=== PATIENT | male | born 1955 | race Caucasian/White ===

== ENCOUNTER 2024-12-21 10:00 | Outpatient (RCR) | payer MEDICARE, BC, SELFPAY ==
--- NOTE | 2024-12-08 10:49 | PTNOTE_ITS ---
PT OP Initial Eval Patient Information Outpatient Physical Therapy Treatment Date: 12/08/24 Visit Reasons: gait and mobility abnormalities Medical Diagnosis: I66.9; Z91.81 Treatment Dx #1: Decrease Balance Treatment Dx #2: Abnormal Gait Start of Care: 12/08/24 Date of Onset: 6 months ago Smoking Status Smoking Status: Never smoker Initial Assessment Subjective: Pt is a 69 y/o male reports of imbalance and gait difficulty ~ 6 months ago. Pt mentioned now he is walking with a shuffling gait. 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 Pt has difficulty with prolonged standing, chores, balance, self care, uneven surfaces, walking, and performing recreational activities. Objective: BLE AROM: all motions are WFL BLE MMTs: grossly 4-/5 TU sec Sit-Stand Test: 7 reps Sharpen Romber sec Assessment: Pt demonstrate decrease LE weakness with balance deficits leading to difficulty with ADLs. Pt will benefit from physical therapy to increase strength, mobility, and work on balance. 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 1) Increase BLE MMTs grossly to 4/5 in 6 wks to be able to walk more than 30 mins 2) Increase sit-stand reps to 12 in 6 wks to improve BLE endurance to be able to stand more than 30 mins 3) Decrease TUG score to 13 sec in 6 wks to be able to decrease fall risk 4) Improve sharpen romberg to 20 sec in 6 wks to be able to improved static and dynamic balance with ADLs 5) Indep with HEP Treatment Plan 1) Manual Therapy 2) Therapeutic Activities 3) Therapeutic Exercises 4) Balance Training 5) Gait Training Frequency and Duration: 2 x wk for 6 wks Certification Dates: 12/08/24 to 03/10/25 Procedure Charges OP PT Eval Mod Complex 30 minutes: Yes
--- NOTE | 2024-12-13 11:43 | PT.ODAYNRPT ---
PT Outpatient Daily Note OP Daily Note Outpatient Physical Therapy Treatment Date: 12/13/24 Visit Reasons: gait and mobility abnormalities Subjective: Pt looks down due to imbalance and fear of falling. According to patient has a unknown foot condition where is toes curl causing imbalance. Pt has seen chief revenue officer but feels that consultation was useless where no outcome came out of the appt. Objective: Please see flow chart for list of ther ex performed Assessment: frequent cues to keep eye level with all exercises; patient has the tendency to look down due to habit and fear of falling. Difficulty with tandem stance balance more left foot over right foot stance. Pt was fatigue post PT session Plan: Continue with PT Length of Time (minutes) of Treatment: 30 Minutes Procedure Charges Therapeutic Exercise 30 minutes: Yes
--- NOTE | 2024-12-21 11:38 | PTNOTE_ITS ---
PT Outpatient Daily Note OP Daily Note Outpatient Physical Therapy Treatment Date: 12/21/24 Visit Reasons: gait and mobility abnormalities Subjective: No new complaints. Objective: Please see flow sheet for ther ex list. Assessment: Used hurdles to work on improving step height, SENIOR LOAN PROCESSOR on SBA and pt using single REAL ESTATE ASSET MANAGER for balance. Plan: Continue with pOC. Length of Time (minutes) of Treatment: 30 Minutes SENIOR LOAN PROCESSOR Service Modifier Method I: Divide the number of min of care provided by the SENIOR LOAN PROCESSOR/QUARRYING SPECIALIST by the total min of care provided then multiply by 100. If greater than 11 percent modifier is required. Method II: Divide the total time of care provided to patient by 10 (round to the nearest whole number) and add 1 min. to set the minimum time requirement. If treatment total was 60 min., then 10% of 6 min PT CQ modifier applied: CQ Modifier applied Procedure Charges Therapeutic Exercise 30 minutes: Yes
== END 2024-12-24 23:59 | disposition home or self-care (01) ==
LOC: CPTX 10:00
PROVIDERS: PCP Physician Assistant Medical; Referring Provider Physician Assistant Medical; Visit Provider Physician Assistant Medical
DX: I69.359 Hemiplegia and hemiparesis following cerebral infarction affecting unspecified side (principal); I69.398 Other sequelae of cerebral infarction; R26.89 Other abnormalities of gait and mobility; R26.2 Difficulty in walking, not elsewhere classified; R53.1 Weakness; Z91.81 History of falling
CPT/HCPCS: 97110; 97162

== ENCOUNTER 2025-01-18 09:00 | Outpatient (RCR) | payer MEDICARE, BC, SELFPAY ==
--- NOTE | 2024-12-27 11:33 | PT.ODAYNRPT ---
PT Outpatient Daily Note OP Daily Note Outpatient Physical Therapy Treatment Date: 12/27/24 Visit Reasons: GAIT AND MOBILITY Subjective: No new complaints. Objective: Please see flow sheet for ther ex list. Assessment: Pt unsteady and way present during tandem stance and SLB requiring FLEXIBLE MACHINING SYSTEM MACHINIST. Plan: Continue with pOC. Length of Time (minutes) of Treatment: 30 Minutes SAFEKEEPING CLERK Service Modifier Method I: Divide the number of min of care provided by the SAFEKEEPING CLERK/DYNAMIC BALANCER SET UP WORKER by the total min of care provided then multiply by 100. If greater than 11 percent modifier is required. Method II: Divide the total time of care provided to patient by 10 (round to the nearest whole number) and add 1 min. to set the minimum time requirement. If treatment total was 60 min., then 10% of 6 min PT CQ modifier applied: CQ Modifier applied Procedure Charges Therapeutic Exercise 30 minutes: Yes
--- NOTE | 2024-12-29 11:17 | PT.ODAYNRPT ---
PT Outpatient Daily Note OP Daily Note Outpatient Physical Therapy Treatment Date: 12/29/24 Visit Reasons: GAIT AND MOBILITY Subjective: Pt still afraid he may fall at work. Pt is up to do any balance exercises Objective: Please see flow chart for list of ther ex performed Assessment: frequent cues given to keep eyes upward with balance exercises. Notice increase post sway with eyes closed on the foam with narrow feet; require help from PT to maintain balance Plan: Continue with PT Length of Time (minutes) of Treatment: 30 Minutes Procedure Charges Therapeutic Exercise 30 minutes: Yes
--- NOTE | 2025-01-02 10:51 | PT.ODAYNRPT ---
PT Outpatient Daily Note OP Daily Note Outpatient Physical Therapy Treatment Date: 01/02/25 Visit Reasons: GAIT AND MOBILITY Subjective: No new complaints. Objective: Please see flow sheet for ther ex list. Assessment: Pt retro leans during step up exercise, PRESS TENDER INCENDIARY GRENADE on SBA. Pt is high fall risk demonstrates poor foot clearance and narrows based stride, verbal cues and reminders for correction during PT session. Plan: Continue with pOC. Length of Time (minutes) of Treatment: 30 Minutes PRESS TENDER INCENDIARY GRENADE Service Modifier Method I: Divide the number of min of care provided by the PRESS TENDER INCENDIARY GRENADE/KEY by the total min of care provided then multiply by 100. If greater than 11 percent modifier is required. Method II: Divide the total time of care provided to patient by 10 (round to the nearest whole number) and add 1 min. to set the minimum time requirement. If treatment total was 60 min., then 10% of 6 min PT CQ modifier applied: CQ Modifier applied Procedure Charges Therapeutic Exercise 30 minutes: Yes
--- NOTE | 2025-01-04 12:15 | PT.ODAYNRPT ---
PT Outpatient Daily Note OP Daily Note Outpatient Physical Therapy Treatment Date: 01/04/25 Visit Reasons: GAIT AND MOBILITY Subjective: Pt's balance is slowly improving. Pt still notice BLE weakness and ankle instability where it throws him off with walking on uneven surfaces Objective: Please see flow chart for list of ther ex performed Assessment: improvement noted with side step on airex with less use of hands for balance. Pt also able to maintain tandem stance on airex longer today with decrease sway Plan: Continue with PT Length of Time (minutes) of Treatment: 30 Minutes Procedure Charges Therapeutic Exercise 30 minutes: Yes
--- NOTE | 2025-01-10 11:58 | PTNOTE_ITS ---
PT Outpatient Daily Note OP Daily Note Outpatient Physical Therapy Treatment Date: 01/10/25 Visit Reasons: GAIT AND MOBILITY Subjective: No concerns. Objective: Please see flow sheet for ther ex list. Assessment: Pt instructed on hurdles exercise, performs with single CISCO UNIFIED COMMUNICATIONS ENGINEER minimal sway with step over. Plan: Continue with poC. Length of Time (minutes) of Treatment: 30 Minutes BUSINESS INTELLIGENCE MANAGER Service Modifier Method I: Divide the number of min of care provided by the BUSINESS INTELLIGENCE MANAGER/SANTA'S HELPER by the total min of care provided then multiply by 100. If greater than 11 percent modifier is required. Method II: Divide the total time of care provided to patient by 10 (round to the nearest whole number) and add 1 min. to set the minimum time requirement. If treatment total was 60 min., then 10% of 6 min PT CQ modifier applied: CQ Modifier applied Procedure Charges Therapeutic Exercise 30 minutes: Yes
--- NOTE | 2025-01-18 10:20 | PTNOTE_ITS ---
PT Outpatient Daily Note OP Daily Note Outpatient Physical Therapy Treatment Date: 01/18/25 Visit Reasons: GAIT AND MOBILITY Subjective: No new complaints. Objective: Please see flow sheet for ther ex list. Assessment: Pt demonstrates moderate sway today with lateral stepping and static stance on airex balance beam exercise requiring single UNDERWRITING SUPPORT SPECIALIST to maintain static balance. Plan: Continue with pOC. Length of Time (minutes) of Treatment: 30 Minutes MANUFACTURERS REPRESENTATIVE Service Modifier Method I: Divide the number of min of care provided by the MANUFACTURERS REPRESENTATIVE/LOG MANAGER by the total min of care provided then multiply by 100. If greater than 11 percent modifier is required. Method II: Divide the total time of care provided to patient by 10 (round to the nearest whole number) and add 1 min. to set the minimum time requirement. If treatment total was 60 min., then 10% of 6 min PT CQ modifier applied: CQ Modifier applied Procedure Charges Therapeutic Exercise 30 minutes: Yes
== END 2025-01-23 23:59 | disposition home or self-care (01) ==
LOC: CPTX 09:00
PROVIDERS: PCP Physician Assistant Medical; Referring Provider Physician Assistant Medical; Visit Provider Physician Assistant Medical
DX: R26.89 Other abnormalities of gait and mobility (principal); I66.9 Occlusion and stenosis of unspecified cerebral artery; R53.1 Weakness; Z91.81 History of falling
CPT/HCPCS: 97110

== ENCOUNTER 2025-01-30 11:00 | Outpatient (RCR) | payer MEDICARE, BC, SELFPAY ==
--- NOTE | 2025-01-25 15:21 | PT.ODAYNRPT ---
PT Outpatient Daily Note OP Daily Note Outpatient Physical Therapy Treatment Date: 01/25/25 Visit Reasons: Gait and mobility Subjective: Pt's balance is not the best but has fallen. Objective: Please see flow chart for list of ther ex performed Assessment: improved tandem balance with practice. Pt still has difficulty clearing feet with nilesh exercises intermittently. Plan: Continue with PT Length of Time (minutes) of Treatment: 30 Minutes Procedure Charges Therapeutic Exercise 30 minutes: Yes
--- NOTE | 2025-01-30 12:02 | PT.ODAYNRPT ---
PT Outpatient Daily Note OP Daily Note Outpatient Physical Therapy Treatment Date: 01/30/25 Visit Reasons: Gait and mobility Subjective: Pt reports progress with balance but not where he would like, still has difficulty walking on uneven surfaces. Objective: Please see flow sheet for ther ex list. Assessment: Pt continues to demonstrates mild moderate sway with tandem balance interventions requiring ENVIRONMENTAL SERVICES ASSISTANT to maintain trunk control and balance. Plan: Asses for DC note, pt has one visit left. Length of Time (minutes) of Treatment: 30 Minutes Procedure Charges Therapeutic Exercise 30 minutes: Yes
--- NOTE | 2025-03-14 10:40 | PT.ODS1RPT ---
PT OP Progress/Discharge Note Date of Service: 03/14/25 Progress Note/DC Note Progress Note/Discharge Note: DC Note Patient Information Visit Reasons: Gait and mobility Service Discharge Date: 03/14/25 Status Assessment: Pt has been seen for 11 visits (eval + 10 visits). Pt last treated on 01/30/25 and has not returned to therapy. At this time Pt will be d/c from care due to plan of care 03/10/25. Pt did not meet set goals in therapy; thank you for your referrals
== END 2025-02-23 23:59 | disposition home or self-care (01) ==
LOC: CPTX 11:00
PROVIDERS: PCP Physician Assistant Medical; Referring Provider Physician Assistant Medical; Visit Provider Physician Assistant Medical
DX: R26.89 Other abnormalities of gait and mobility (principal); R26.2 Difficulty in walking, not elsewhere classified; R53.1 Weakness; Z91.81 History of falling
CPT/HCPCS: 97110

== ENCOUNTER → 2025-03-21 | Outpatient (CLI) | payer MEDICARE, BC, SELFPAY ==
--- NOTE | 2025-03-21 10:26 | XR_ITS ---
Examination: CT brain head without contrast. 2-D sagittal coronal reconstructions Date and time of exam: March 21, 2025, 1034 hours COMPARISON: February 23, 2018 INDICATIONS: Onset headaches beginning 3 weeks ago CTDI: vol (mGy): 51.9 DLP: (mGycm): 1012 Technique: Multiple CT axial sections of the brain have been obtained, 5 mm slice thickness. Contrast has not been administered. 2-D sagittal, coronal reconstructions have been obtained Low dose protocols were performed. One or more of the following dose reduction techniques were used; automated exposure control, adjustment of the mA and/or KV according to patient size, use of iterative reconstruction technique. Findings: No significant ventricular enlargement. Intra-axial or extra-axial hemorrhage density is not seen. No mass effect or midline shift Basal cisterns are not remarkable. Fourth ventricle is midline. Cranial vault intact. Impression: Negative for acute hemorrhage, mass effect or midline shift Mild acute sphenoid sinusitis
== END | disposition home or self-care (01) ==
LOC: CCTX 10:12
PROVIDERS: PCP Physician Assistant Medical; Referring Provider Physician Assistant Medical; Visit Provider Physician Assistant Medical
DX: J01.30 Acute sphenoidal sinusitis, unspecified (principal)
CPT/HCPCS: 70450